=== PATIENT | female | born 1955 | race Caucasian/White ===

== ENCOUNTER 2018-03-20 22:42 | Emergency (ER) | payer OTHER ==
[~2018-03-20] VITALS: Ht 160 cm; Wt 57.2 kg
[~2018-03-20 22:42] MED LIST: TYLENOL WITH C1 EACH PO
[2018-03-20 23:07] LABS: ABSOLUTE BASOPHIL COUNT 0 /CUMM (0.0-0.2); ABSOLUTE EOSINOPHIL COUNT 0.3 /CUMM (0.0-0.7); ABSOLUTE GRANULOCYTE CT 2.5 /CUMM (1.4-6.5); ABSOLUTE LYMPH COUNT 2.7 /CUMM (1.2-3.4); ABSOLUTE MONOCYTE COUNT 0.5 /CUMM (0.10-0.60); BASOPHIL % 0.7 % (0.0-2.0); EOSINOPHIL % 4.5 % (0-5); GRANULOCYTE % 41.9 % (42.2-75.2); HEMATOCRIT 38.8 % (37-47); MEAN CORPUSCULAR HGB 31.6 PG (27.0-31.0); MEAN CORPUSCULAR HGB CONC 33.5 G/DL (33.0-37.0); MEAN CORPUSCULAR VOLUME 94.2 FL (81.0-99.0); MEAN PLATELET VOLUME 8.2 FL (7.4-10.4); PLATELET COUNT 226 /CUMM (130-400); RBC DISTRIBUTION WIDTH 12.8 % (11.5-14.5); RED BLOOD CELL CT 4.12 /CUMM (4.20-5.40)
--- NOTE | 2018-03-20 23:08 | ED GI/GU/ABDOMINAL COMPLAINT ---
History of Present Illness General Chief Complaint: General Adult Stated Complaint: SEVERE GROIN PAIN, NAUSEA PER PT Source: patient, family Exam Limitations: no limitations Vital Signs & Intake/Output Vital Signs & Intake/Output Vital Signs Date Time Temp Pulse Resp B/P B/P Pulse O2 O2 Flow FiO2 Mean Ox Delivery Rate 03/21 0120 98.3 60 16 103/57 96 Room Air 03/21 0000 97.8 74 18 115/72 97 Room Air 03/20 2255 97.7 83 18 125/83 99 Room Air ED Intake and Output 03/21 0000 03/20 1200 Intake Total 0 Output Total Balance 0 Intake, Oral 0 Patient 126 lb Weight Allergies Coded Allergies: Penicillins (Intermediate, HIVES, FACIAL SWELLING 06/18/16) Sulfa (Sulfonamide Antibiotics) (Intermediate, DYSPNEA 06/18/16) erythromycin base (Intermediate, GASTRITIS 06/18/16) fluconazole (Intermediate, VERTIGO 06/18/16) pentazocine (From TALWIN) (Intermediate, HIVES, ITCHING, FACIAL DISTOTRTION AND NUMBNESS 3 DAYS 06/18/16) tetracycline (Intermediate, HIVES AND ITCHING 06/18/16) vancomycin (Intermediate, RED MAN SYNDROME 06/18/16) amoxicillin (Mild, HIVES AND ITCHING 06/18/16) ampicillin (Mild, HIVES AND ITCHING 06/18/16) doxycycline (Mild, HIVES AND ITCHING 06/18/16) meperidine (From DEMEROL) (Mild, NAUSEA AND DRY HEAVES 06/18/16) naproxen (From NAPROSYN) (Mild, FACIAL SWELLING, FACIAL PARALYSIS ON LEFT SIDE FOR TWO DAYS 06/18/16) phenol (Mild, SKIN BLISTERING AND CHEMICAL BURN 06/18/16) procaine (From NOVOCAIN) (Mild, JITTERS AND SHAKES 06/18/16) iodine (RED BLOTHINESS OVER BODY, FEELING FAINT 06/18/16) prednisone (Mild, GLUCOSE UP 240 06/18/16) Uncoded Allergies: DYES (Severe, BREATHING DIFFICULTIES AND NHIVES 06/18/16) LEVODROMERAN (Severe, HALLUCINATIONS 06/18/16) EES (Mild, GASTRITIS 06/18/16) Reconcile Medications Ondansetron (Zofran Odt) 4 MG TAB.RAPDIS 1 TAB SL TID PRN nausea Oxycodone HCl/Acetaminophen (Percocet 5-325 MG Tablet) 5 MG-325 MG TABLET 1 TAB PO BID PRN pain Tylenol With Codeine (Tylenol With Codeine #3 Tablet) 300 MG-30 MG TABLET 1 TAB PO Q4-6 PRN PAIN Triage Note: PT TO ER C/C 9/10 LEFT GROIN PAIN X 1 DAY. PT HAS HX OF CYST REMOVAL TO SAME AREA LAST YEAR. +NAUSEA. DENIES URINARY S/S Triage Nurses Notes Reviewed? yes ? N Is pt currently ? No Onset: Gradual Duration: hour(s): Timing: single episode today Quality/Severity: severe Severity Numbers: 9 Location: groin, left lower quadrant Radiation: flank HPI: 62YO female with hx of left groin abscess requiring surigcal drainage presents to ED complaining of LLQ/left groin pain beginning early this morning. Pain described as severe, 10/10, left groin radiating toward left side. Pain has gradually worsened since onset. Patient states she had a similar pain relating to a groin abscess which started as an infected hair follicle. She has had no skin changes in the groin or abdominal area this time. PAtient reports associated nausea and one episode of diarrhea today. The patient denies fevers, dysuria, hematuria, vomiting. (Lissette Hyatt) Past History Travel History Traveled to [place] past 21 day No Medical History Any Pertinent Medical History? see below for history Cardiovascular: VERTIGO Gastrointestinal: irritable bowel syndrome, HIATEL HERNIA Hepatic: FATTY LIVER Renal: RENAL CYST Musculoskeletal: O.P. Surgical History Surgical History: non-contributory Psychosocial History What is your primary language Mongolian Tobacco Use: Quit >30 days ago Family History Hx Contributory? No (Lissette Hyatt) Review of Systems Review of Systems Constitutional: Reports: no symptoms. EENTM: Reports: no symptoms. Respiratory: Reports: no symptoms. Cardiovascular: Reports: no symptoms. GI: Reports: see HPI. Genitourinary: Reports: see HPI. Musculoskeletal: Reports: no symptoms. Skin: Reports: no symptoms. Neurological/Psychological: Reports: no symptoms. Hematologic/Endocrine: Reports: no symptoms. Immunologic/Allergic: Reports: no symptoms. All Other Systems: Reviewed and Negative (Lissette Hyatt) Physical Exam Physical Exam General Appearance: well developed/nourished, no apparent distress, alert, awake Head: atraumatic, normal appearance Eyes: Bilateral: normal appearance. 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 No Sepsis Present: No Sepsis Focused Exam Completed? No (Yumiko ROWELL,Lissette Kendall) Progress Differential Diagnosis: appendicitis, bowel obstruction, diverticulitis, gastritis, hernia, inflamm bowel dis, kidney stone, ovarian cyst, ovarian torsion, SBO, UTI/pyelo Plan of Care: Orders Procedure Date/time Status URINALYSIS 03/20 2246 Complete LIPASE 03/20 2246 Complete HEPATIC FUNCTION PANEL 03/20 2246 Complete CBC WITHOUT DIFFERENTIAL 03/20 2246 Complete BASIC METABOLIC PANEL 03/20 2246 Complete AMYLASE 03/20 2246 Complete Laboratory Tests 03/21/18 0022: Urine Color YEL, Urine Clarity CLEAR, Urine pH 7.0, Ur Specific Anderson 1.010, Urine Protein NEG, Urine Ketones NEG, Urine Nitrite NEG, Urine Bilirubin NEG, Urine Urobilinogen 0.2, Ur Leukocyte Esterase NEG, Ur Microscopic EXAM NOT REQUIRED, Urine Hemoglobin NEG, Urine Glucose NEG 03/20/18 2301: Anion Gap 11, Estimated GFR > 60, BUN/Creatinine Ratio 26.3 H, Glucose 105 H, Calcium 9.3, Total Bilirubin 0.4, Direct Bilirubin 0.1, AST 34, ALT 54 H, Alkaline Phosphatase 71, Total Protein 6.9, Albumin 4.2, Amylase 61, Lipase 149, CBC w Diff NO MAN DIFF REQ, RBC 4.12 L, MCV 94.2, MCH 31.6 H, MCHC 33.5, RDW 12.8, MPV 8.2, Gran % 41.9 L, Lymphocytes % 44.5, Monocytes % 8.4, Eosinophils % 4.5, Basophils % 0.7, Absolute Granulocytes 2.5, Absolute Lymphocytes 2.7, Absolute Monocytes 0.5, Absolute Eosinophils 0.3, Absolute Basophils 0 Patient medicated with IV morphine, CT scan is pending. Following IV morphine dose patient reports left sided body numbness. Neurologic exam performed at this time shows cranial nerves are intact without focal neurologic deficit, sensation is intact bilaterally, strength is 5/5 bilaterally. Patient was offered CT head imaging however declines. She states that she feels much improvement in her pain following IV morphine. CT scan of abdomen shows no acute abnormality, labs are stable, the patient's vital signs are stable. No evidence of urine infection. Patient's symptoms have been present for several hours today, associated with nausea and diarrhea, she is 62, low suspicion for acute ovarian torsion given these findings and no abnormal findings detected with ovaries and CT imaging. Patient to follow up with GI. She was given strict return precautions. The patient agrees with plan of care. Discussed with Dr. Ennis agrees with this plan. Diagnostic Imaging: Viewed by Me: CT Scan. Discussed w/RAD: CT Scan. Radiology Impression: PATIENT: KALE RAMOS PRESENT AGE: 62 PATIENT ACCOUNT NO: [id number] : 55 LOCATION: [facility] ORDERING PHYSICIAN: Lissette ROWELL SERVICE DATE: 03/20/18 EXAM TYPE: CAT - CT ABD & PELVIS W/O IV CONTRAS EXAMINATION: CT ABDOMEN AND PELVIS WITHOUT CONTRAST CLINICAL INFORMATION: Left groin pain. Nausea. COMPARISON: None. TECHNIQUE: Contiguous axial thin section helical images of the abdomen and pelvis were performed without oral or IV contrast. The data set was reformatted in the coronal and sagittal planes and reviewed on an independent workstation. DLP: 286 mGy-cm. FINDINGS: The visualized lung bases are clear. The visualized portions of the heart are unremarkable. The liver is of normal size and attenuation without focal lesions nor intrahepatic biliary ductal dilation. A normal gallbladder is identified. There is no wall thickening or discernible pericholecystic fluid. The spleen, pancreas, adrenal glands are unremarkable. Both kidneys are of normal size and attenuation without hydronephrosis or nephrolithiasis. There is no abdominal free fluid. There is neither mesenteric nor retroperitoneal lymphadenopathy. Normal unopacified loops of small and large bowel are identified. There is no pelvic free fluid. The urinary bladder is unremarkable. There is neither pelvic nor inguinal lymphadenopathy. Bone windows : Neither sclerotic nor lytic bone lesions are identified. IMPRESSION: No evidence for acute abdominal or pelvic inflammatory or infectious processes. DICTATED BY: Jamison Tillman MD DATE/TIME DICTATED:03/21/185 PARTY PLAN DEALER:TERRELL DATE/TIME TRANSCRIBED:03/21/185 CONFIDENTIAL, DO NOT COPY WITHOUT APPROPRIATE AUTHORIZATION. <Electronically signed in Other Vendor System> SIGNED BY: Jamison Tillman MD 03/21/1812 Initial ED EKG: none (Yumiko ROWELL,Lissette Kendall) Departure Departure Disposition: HOME OR SELF CARE Condition: Stable Clinical Impression Primary Impression: Abdominal pain Qualifiers: Abdominal location: left lower quadrant Qualified Code: R10.32 - Left lower quadrant pain Secondary Impressions: Paresthesias Referrals: Clifton WOODS,Kaleb Cisneros (PCP/Family) Bernardo WOODS,Grover Pleitez Additional Instructions: Take Zofran as prescribed as needed for nausea. Take Percocet as prescribed as needed for pain. Follow-up with senior process analyst regarding your abdominal pain. Return with worsening symptoms or concerns including worsening abdominal pain, high fevers, vomiting.. Please note that there might be incidental findings in your evaluation that are unrelated to the current emergency department visit. Please notify your primary care doctor about this emergency department visit in order to obtain and review all of the testing performed so that these incidental findings can be monitored as needed. If you had an x-ray performed, please understand that some fractures may not be seen on the initial set of x-rays. If your symptoms persist you might need a repeat set of x-rays to check for such a fracture. If you had a laceration evaluated, please understand that foreign bodies such as glass or wood may not be visible to the naked eye or on plain x-rays. If the wound becomes red, swollen, increasingly more painful or if there is any drainage from the wound, please have it reevaluated by a physician for the possibility of a retained foreign body. If you're unable to follow up as outlined in the discharge instructions please return to the emergency department. Thank you for choosing the [facility] Emergency Department for your care. It was a pleasure to serve you today. Departure Forms: Customer Survey General Discharge Information Prescriptions: Current Visit Scripts Ondansetron (Zofran Odt) 1 TAB SL TID PRN nausea #10 TAB Oxycodone HCl/Acetaminophen (Percocet 5-325 MG Tablet) 1 TAB PO BID PRN pain #10 TAB (Yumiko ROWELL,Lissette Kendall) PA/PRODUCTION CONTROL PLANNER Co-Sign Statement Statement: ED Attending supervision documentation- [] I saw and evaluated the patient. I have also reviewed all the pertinent lab results and diagnostic results. I agree with the findings and the plan of care as documented in the PA's/PRODUCTION CONTROL PLANNER's documentation. [x] I have reviewed the ED Record and agree with the PA's/PRODUCTION CONTROL PLANNER's documentation. [] Additions or exceptions (if any) to the PAs/PRODUCTION CONTROL PLANNER's note and plan are summarized below: [] (Raymon WOODS,Serafin Cobos)
--- NOTE | 2018-03-21 00:13 | CT SCAN REPORT ---
EXAMINATION: CT ABDOMEN AND PELVIS WITHOUT CONTRAST CLINICAL INFORMATION: Left groin pain. Nausea. COMPARISON: None. TECHNIQUE: Contiguous axial thin section helical images of the abdomen and pelvis were performed without oral or IV contrast. The data set was reformatted in the coronal and sagittal planes and reviewed on an independent workstation. DLP: 286 mGy-cm. FINDINGS: The visualized lung bases are clear. The visualized portions of the heart are unremarkable. The liver is of normal size and attenuation without focal lesions nor intrahepatic biliary ductal dilation. A normal gallbladder is identified. There is no wall thickening or discernible pericholecystic fluid. The spleen, pancreas, adrenal glands are unremarkable. Both kidneys are of normal size and attenuation without hydronephrosis or nephrolithiasis. There is no abdominal free fluid. There is neither mesenteric nor retroperitoneal lymphadenopathy. Normal unopacified loops of small and large bowel are identified. There is no pelvic free fluid. The urinary bladder is unremarkable. There is neither pelvic nor inguinal lymphadenopathy. Bone windows: Neither sclerotic nor lytic bone lesions are identified. IMPRESSION: No evidence for acute abdominal or pelvic inflammatory or infectious processes.
[2018-03-21] MEDS ORDERED: ZOFRAN ODT4 M1 SL (01:06)
[2018-03-21] MEDS ORDERED: PERCOCET 5-3251 EACH PO (01:06)
[2018-03-21 01:20] VITALS: BP 103/57
== END 2018-03-21 01:33 ==
LOC: ERH 22:42
PROVIDERS: Pediatrics
DX: R10.32 Left lower quadrant pain (principal); R11.0 Nausea; R19.7 Diarrhea, unspecified
CPT/HCPCS: 74176; 81003; 96374; 96375; J2405